=== PATIENT | male | born 1990 | race Caucasian/White ===

== ENCOUNTER 2017-03-27 18:42 | Emergency (ER) ==
[2017-03-27 18:42] VITALS: BMI 21.2
[2017-03-27 18:51] VITALS: BP 147/111; TEMP 99.7
--- NOTE | 2017-03-27 18:52 | ED.PDOC ---
General ED Provider: Dr. MARIBETH MARSH JR Chief Complaint: Hand Pain/Injury Stated Complaint: Pain rt hand wrist. Punched a wall with closed fist. Deformity to base of hand, ulnar side.[ End ]20 minutes 99.7 91 20 98% 147/111 05/08 wisdom teeth Time Seen by Physician: 18:50 Mode of Arrival: Walk-In Information Source: Patient Exam Limitations: No limitations Primary Care Provider: SANA MEYER Nursing and Triage Documentation Reviewed and Agree: No Review of Systems - Review Of Systems Constitutional: Reports: No symptoms Eyes: Reports: No symptoms Ears, Nose, Mouth, Throat: Reports: No symptoms Respiratory: Reports: No symptoms Cardiac: Reports: No symptoms GI: Reports: Nausea : Reports: No symptoms Musculoskeletal: Reports: Joint pain, Other (hand pain tenderness no focal lesions ) Skin: Reports: Lesions (abrasions 4th 5th mcp 2345 prox pips) Neurological: Reports: Anxiety Endocrine: Reports: No symptoms Hematologic/Lymphatic: Reports: No symptoms All Other Systems: Other Past Medical History - Past Medical History Previously Healthy: Yes Endocrine: Reports: None Cardiovascular: Reports: None Respiratory: Reports: None Hematological: Reports: None Gastrointestinal: Reports: None Genitourinary: Reports: None Neuro/Psych: Reports: None Musculoskeletal: Reports: None Cancer: Reports: None - Surgical History General Surgical History: Reports: Unknown - Family History Family History: Reports: Unknown - Social History Smoking Status: Current every day smoker, Heavy tobacco smoker Hx Substance Use: No Alcohol Screening: Occasionally - Immunizations Tetanus Shot up to Date: ([place]) Physical Exam - Physical Exam Appearance: Well-appearing, Thin Pain Distress: Moderate Musculoskeletal: Limited ROM, Edema Skin: Warm, Dry Neurological: Sensation intact, Alert, Oriented Psychiatric: Anxious Interpretation - Radiology Interpretation Radiology Interpretation By: ED Physician Radiology Results: Negative Exam Interpreted: Other (wrist) Radiology Interpretation By: Radiologist Radiology Results: Positive Exam Interpreted: Other (wrist hamate avulsion) Critical Care Note - Critical Care Note Total Time (mins): 0 Course - Course Orders, Labs, Meds: Orders Category Date Time Status Meperidine HCl/Pf [Demerol 50 mg/ml Syringe] MEDS 03/27/17 19:03 Discontinued 50 mg IM ONCE STA Promethazine HCl [Phenergan 25 mg/ml Vial] MEDS 03/27/17 19:04 Discontinued 25 mg IM ONCE STA HAND, RIGHT 3 VIEWS Stat RADS 03/27/17 18:51 Completed Medications Discontinued Medications Generic Name Dose Route Start Last Admin Trade Name Freq PRN Reason Stop Dose Admin Meperidine HCl 50 mg 03/27/17 19:03 03/27/17 19:21 Demerol 50 Mg/Ml Syringe IM 03/27/17 19:04 50 mg ONCE STA Administration Promethazine HCl 25 mg 03/27/17 19:04 03/27/17 19:22 Phenergan 25 Mg/Ml Vial IM 03/27/17 19:05 25 mg ONCE STA Administration Vital Signs: Temp Pulse Resp BP Pulse Ox 03/27/17 18:42 99.7 F H 91 H 20 147/111 H 98 Departure - Departure Time of Disposition: 19:37 Disposition: HOME SELF-CARE Discharge Problem: Fracture of hamate Instructions: Wrist Fracture in Adults (ED) Condition: Good Pt referred to PMD for follow-up: Yes Additional Instructions: follow up PMD in morning for orthopedic referral may follow up with [facility] for pain no refills return if pain not controlled if swelling increasing or if numbness Prescriptions: Hydrocodone Bit/Acetaminophen [[place] 5-325] 1 - 2 tab PO Q6HR PRN #12 tablet PRN Reason: pain Allergies/Adverse Reactions: Allergies No Known Allergies Allergy (Verified 07/22/16 05:47) Home Medications: Ambulatory Orders Hydrocodone Bit/Acetaminophen [[place] 5-325] 1 - 2 tab PO Q6HR PRN #12 tablet Ondansetron HCl [Zofran Tab] 4 mg PO Q8H PRN 03/27/17
[2017-03-27] MEDS ORDERED: DEMEROL 50 MG/ML SYRINGE IM STA (19:03)
[2017-03-27] MEDS ORDERED: PHENERGAN 25 MG/ML VIAL IM STA (19:04)
--- NOTE | 2017-03-27 19:26 | DI ---
Exam: Three-view right hand. Date: 03/27/2017. Comparison: None. HISTORY: Punched a wall. FINDINGS: The soft tissues are within normal limits. The mineralization is normal. Best seen on t he lateral view, is a 1.3 x 0.5 cm ossific fragment in the soft tissues dorsal to the distal carpal row. The metacarpals and phalanges are intact. Impression: Best seen on the lateral view was 1.3 x 0.5 cm ossific fragment over the distal carpal row and likely represents a vertical avulsion of the hamate.
== END 2017-03-27 19:49 | disposition home or self-care (01) ==
LOC: ED 18:42
DX: S62.141A Displaced fracture of body of hamate [unciform] bone, right wrist, initial encounter for closed fracture (principal); W22.09XA Striking against other stationary object, initial encounter; F17.210 Nicotine dependence, cigarettes, uncomplicated
CPT/HCPCS: 96372; 99282; 99283

== ENCOUNTER 2018-03-25 15:47 | Emergency (ER) | payer OTHER ==
[2018-03-25 15:51] VITALS: BP 133/66; TEMP 99.6; BMI 22.6
--- NOTE | 2018-03-25 16:25 | ED.PDOC ---
General ED Provider: Dr. EMI HURD Chief Complaint: Eye Problem Stated Complaint: pink eye and right upper lid edema Time Seen by Physician: 16:00 (negative trauma ) Mode of Arrival: Walk-In Information Source: Patient Exam Limitations: No limitations Nursing and Triage Documentation Reviewed and Agree: Yes Does patient meet sepsis criteria?: No If yes, has appropriate treatment been initiated?: No (see photo) System Inflammatory Response Syndrome: Not Applicable Sepsis Protocol: For patient's 13 years and over: Temp is 96.8 and below OR 101 and greater Pulse >90 BPM Resp >20/minute Acutely Altered Mental Status Are patient's symptoms suggestive of a new infection, such as: -Pneumonia -Skin, Soft Tissue -Endocarditis -UTI -Bone, Joint Infection -Implantable Device -Acute Abdominal Infection -Wound Infection -Meningitis -Blood Stream Catheter Infection -Unknown Review of Systems - Review Of Systems Constitutional: Reports: No symptoms Eyes: Reports: Inflammation (right side lid and conjunctiva ) Ears, Nose, Mouth, Throat: Reports: No symptoms Respiratory: Reports: No symptoms Cardiac: Reports: No symptoms GI: Reports: No symptoms : Reports: No symptoms Musculoskeletal: Reports: No symptoms Skin: Reports: No symptoms Neurological: Reports: No symptoms Endocrine: Reports: No symptoms Hematologic/Lymphatic: Reports: No symptoms All Other Systems: Reviewed and Negative Past Medical History - Past Medical History Previously Healthy: Yes Endocrine: Reports: None Cardiovascular: Reports: None Respiratory: Reports: None Hematological: Reports: None Gastrointestinal: Reports: None Genitourinary: Reports: None Neuro/Psych: Reports: None Musculoskeletal: Reports: None Cancer: Reports: None - Surgical History General Surgical History: Reports: Unknown - Family History Family History: Reports: Unknown - Social History Smoking Status: Current every day smoker, Heavy tobacco smoker Hx Substance Use: No Alcohol Screening: Occasionally Physical Exam - Physical Exam Appearance: Well-appearing, No pain distress, Well-nourished Eyes: Conjunctiva inflammed (right sided) ENT: Ears normal, Nose normal, Oropharynx normal Respiratory: Airway patent, Breath sounds clear, Breath sounds equal, Respirations nonlabored Cardiovascular: RRR, Pulses normal, No rub, No murmur GI/: Soft, Nontender, No masses, Bowel sounds normal, No Organomegaly Musculoskeletal: Normal strength, ROM intact, No edema, No calf tenderness Skin: Warm, Dry, Normal color Neurological: Sensation intact, Motor intact, Reflexes intact, Cranial nerves intact, Alert, Oriented Psychiatric: Affect appropriate, Mood appropriate Physician Notification - Case Discussed Physician Notified: DR tai mancia Time of Notification: 16:26 (SEND PT NOW ) Critical Care Note - Critical Care Note Total Time (mins): 0 Course - Course Vital Signs: Temp Pulse Resp BP Pulse Ox 03/25/18 15:47 99.6 F 58 L 18 133/66 96 Departure - Departure Time of Disposition: 16:25 Disposition: HOME SELF-CARE Discharge Problem: Conjunctivitis, right eye Qualifiers: Conjunctivitis type: unspecified Qualified Code(s): H10.9 - Unspecified conjunctivitis Instructions: Conjunctivitis (ED) Condition: Good Pt referred to PMD for follow-up: Yes IPMP verified?: No Additional Instructions: Please call your Family Physician as soon as possible to schedule a follow-up appointment.YOU MUST GO TO [facility] NOW Allergies/Adverse Reactions: Allergies No Known Allergies Allergy (Verified 03/25/18 15:51) Home Medications: Ambulatory Orders 1 [No Reported Medications] 03/25/18 Disposition Discussed With: Patient
== END 2018-03-25 16:34 | disposition home or self-care (01) ==
LOC: ED 15:47
DX: H10.9 Unspecified conjunctivitis (principal); F17.210 Nicotine dependence, cigarettes, uncomplicated
CPT/HCPCS: 99282

== ENCOUNTER 2018-06-02 17:21 | Emergency (ER) ==
[2018-06-02 17:23] VITALS: BP 136/81; TEMP 99.6; BMI 22.8
[2018-06-02] MEDS ORDERED: ZOFRAN ODT PO STA (18:16)
--- NOTE | 2018-06-02 18:31 | ED.PDOC ---
General ED Provider: Dr. SANA LO Chief Complaint: Headache Stated Complaint: AWAKENED THIS AM WITH SEVERE HEADACHE.WORSE MIGRAINE EVER. LOCATION ACROSS FOREHEAD IN SINUS REGION.NAUSEATED WITH EMESIS. NO LOC. 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 WAS BROUGHT HERE BY HIS ADMINISTRATIVE SECRETARY PARTNER/. CURRENTLY AMBULATING IN ER TO [facility] Time Seen by Physician: 18:30 Mode of Arrival: Walk-In Information Source: Patient Exam Limitations: No limitations Nursing and Triage Documentation Reviewed and Agree: Yes Does patient meet sepsis criteria?: No System Inflammatory Response Syndrome: Not Applicable Sepsis Protocol: For patient's 13 years and over: Temp is 96.8 and below OR 101 and greater Pulse >90 BPM Resp >20/minute Acutely Altered Mental Status Are patient's symptoms suggestive of a new infection, such as: -Pneumonia -Skin, Soft Tissue -Endocarditis -UTI -Bone, Joint Infection -Implantable Device -Acute Abdominal Infection -Wound Infection -Meningitis -Blood Stream Catheter Infection -Unknown Neurological Complaint Exam - Headache Complaint/Exam Symptoms Are: Still present Timing: Intermittent Episodes Lasting: Hours Worst Headache Ever: Yes Initial Severity: Severe Current Severity: Moderate Location: Right, Left, Frontal Character: Reports: Throbbing, Radiating, Pressure Aggravating: Reports: Exertion, Position change, Bright lights Alleviating: Reports: None Associated Signs and Symptoms: Reports: Dizziness, Nausea, Vomiting. Denies: Seizure, Sinus pressure, Fever, Neck pain, Neck stiffness, Decreased LOC, Visual changes Related History: Denies: Similar episode Related Surgical History: Reports: None SAH Risk Factors: Reports: None Meningitis Risk Factors: Reports: None SDH Risk Factors: Reports: None Temporal Arteritis Risk Factors: Reports: None Fundoscopic Exam: Present: Normal Findings Papilledema Present: No Temporal Artery Tenderness: Present: None Sinus Tenderness: Present: None TMJ Tenderness: Present: None Meningeal Signs Positive: No Pain on Passive Flexion-Positive Kernig's: No ROM Limited In: No Limitiations Focal Weakness: Present: None Focal Sensory Loss: Present: None Gait: Normal Nystagmus Present: No Gag Reflex Present: Yes [id number]: Normal Findings Differential Diagnoses: Migraine, Sinus Headache, Tension Headache Review of Systems - Review Of Systems Constitutional: Reports: No symptoms Eyes: Reports: Photophobia Ears, Nose, Mouth, Throat: Reports: No symptoms Respiratory: Reports: No symptoms Cardiac: Reports: No symptoms GI: Reports: Nausea : Reports: No symptoms Musculoskeletal: Reports: No symptoms, Muscle pain, Muscle stiffness Skin: Reports: No symptoms Neurological: Reports: Headache Endocrine: Reports: No symptoms Hematologic/Lymphatic: Reports: No symptoms All Other Systems: Reviewed and Negative Past Medical History - Past Medical History Endocrine: Reports: None Cardiovascular: Reports: None Respiratory: Reports: None Hematological: Reports: None Gastrointestinal: Reports: None Genitourinary: Reports: None Neuro/Psych: Reports: None Musculoskeletal: Reports: None Cancer: Reports: None - Surgical History General Surgical History: Reports: Unknown - Family History Family History: Reports: Unknown - Social History Smoking Status: Current every day smoker, Heavy tobacco smoker Hx Substance Use: No Alcohol Screening: Occasionally - Immunizations Tetanus Shot up to Date: No Physical Exam - Physical Exam Appearance: Well-appearing, No pain distress, Well-nourished Ill-appearing: Moderate Pain Distress: Moderate Eyes: BRANDO, EOMI, Conjunctiva clear ENT: Ears normal, Nose normal, Oropharynx normal Neck: Supple Respiratory: Airway patent, Breath sounds clear, Breath sounds equal, Respirations nonlabored Cardiovascular: RRR, Pulses normal, No rub, No murmur GI/: Soft, Nontender, No masses, Bowel sounds normal, No Organomegaly Musculoskeletal: Normal strength, ROM intact, No edema, No calf tenderness Skin: Warm, Dry, Normal color Neurological: Sensation intact, Motor intact, Reflexes intact, Cranial nerves intact, Alert, Oriented Psychiatric: Affect appropriate, Mood appropriate, Anxious Interpretation - Radiology Interpretation Radiology Interpretation By: Radiologist Exam Interpreted: CT Scan (Head no acute abnormality.Sinus -mucoal thickening in ethmoid sinus) Critical Care Note - Critical Care Note Total Time (mins): 0 Course - Course Hematology/Chemistry: 06/02/18 18:25 06/02/18 18:25 Orders, Labs, Meds: Lab Review 06/02/18 06/02/18 06/02/18 18:09 18:09 18:25 WBC 8.50 RBC 5.64 Hgb 16.2 Hct 46.5 MCV 82.4 MCH 28.7 MCHC 34.8 RDW Coeff of Kelsi 12.4 Plt Count 215 Immature Gran % (Auto) 0.2 Neut % (Auto) 67.9 Lymph % (Auto) 18.8 Johnston % (Auto) 12.0 H Eos % (Auto) 0.6 Baso % (Auto) 0.5 Immature Gran # (Auto) 0.0 Neut # (Auto) 5.8 Lymph # (Auto) 1.6 Johnston # (Auto) 1.0 Eos # (Auto) 0.1 Baso # (Auto) 0.0 Sodium Potassium Chloride Carbon Dioxide Anion Gap BUN Creatinine Estimated GFR (MDRD) BUN/Creatinine Ratio Glucose Calcium Total Bilirubin AST ALT Alkaline Phosphatase Total Protein Albumin Globulin Albumin/Globulin Ratio Urine Color Yellow Urine Clarity Clear Urine pH 7.5 Ur Specific [place] 1.015 Urine Protein Negative Urine Glucose (UA) Negative Urine Ketones Negative Urine Blood Negative Urine Nitrite Negative Urine Bilirubin Negative Urine Urobilinogen 0.2 Ur Leukocyte Esterase Negative Urine Opiates Screen Negative Ur Oxycodone Screen Negative Urine Methadone Screen Negative Ur Propoxyphene Screen Negative Ur Barbiturates Screen Negative U Tricyclic Antidepress Negative Ur Phencyclidine Scrn Negative Ur Amphetamine Screen Negative U Methamphetamines Scrn Negative U Benzodiazepines Scrn Negative Urine Cocaine Screen Negative U Cannabinoids Screen Positive 06/02/18 18:25 WBC RBC Hgb Hct MCV MCH MCHC RDW Coeff of Kelsi Plt Count Immature Gran % (Auto) Neut % (Auto) Lymph % (Auto) [place] % (Auto) Eos % (Auto) Baso % (Auto) Immature Gran # (Auto) Neut # (Auto) Lymph # (Auto) Johnston # (Auto) Eos # (Auto) Baso # (Auto) Sodium 137.6 Potassium 3.99 Chloride 101.5 Carbon Dioxide 29.7 Anion Gap 10.39 BUN 9.9 Creatinine 1.06 Estimated GFR (MDRD) 84.00 BUN/Creatinine Ratio 9.33 Glucose 90.4 Calcium 9.26 Total Bilirubin 0.60 AST 31.4 ALT 20.5 Alkaline Phosphatase 55.2 Total Protein 8.14 Albumin 4.77 Globulin 3.37 Albumin/Globulin Ratio 1.41 Urine Color Urine Clarity Urine pH Ur Specific [place] Urine Protein Urine Glucose (UA) Urine Ketones Urine Blood Urine Nitrite Urine Bilirubin Urine Urobilinogen Ur Leukocyte Esterase Urine Opiates Screen Ur Oxycodone Screen Urine Methadone Screen Ur Propoxyphene Screen Ur Barbiturates Screen U Tricyclic Antidepress Ur Phencyclidine Scrn Ur Amphetamine Screen U Methamphetamines Scrn U Benzodiazepines Scrn Urine Cocaine Screen U Cannabinoids Screen Orders Category Date Time Status CBC W/ AUTO DIFF Stat LAB 06/02/18 18:25 Completed CMP [COMPREHENSIVE METABOLIC PANEL] Stat LAB 06/02/18 18:25 Completed UA [URINALYSIS C & S IF INDICATED] Stat LAB 06/02/18 18:09 Completed URINE DRUG SCREEN (RAPID FOR ED) [DRUG SCREEN, URINE, LAB 06/02/18 18:09 Completed RAPID] Stat Dexamethasone 4 mg/ml Inj [Decadron 4 mg/ml Sdv] MEDS 06/02/18 19:20 Discontinued 4 mg IM ONCE STA Ketorolac Tromethamine [Toradol] MEDS 06/02/18 19:04 Discontinued 30 mg IM ONCE STA Ondansetron [Zofran Odt] MEDS 06/02/18 19:11 Discontinued 4 mg .ROUTE .STK-MED ONE Ondansetron [Zofran Odt] MEDS 06/02/18 18:16 Discontinued 4 mg PO ONCE STA CT HEAD W/O CONTRAST Stat RADS 06/02/18 18:[address] SINUSES W/O CONTRAST Stat RADS 06/02/18 18:13 Completed Medications Discontinued Medications Generic Name Dose Route Start Last Admin Trade Name Freq PRN Reason Stop Dose Admin Dexamethasone Sodium Phosphate 4 mg 06/02/18 19:20 Decadron 4 Mg/Ml Sdv IM 06/02/18 19:21 ONCE STA Ketorolac Tromethamine 30 mg 06/02/18 19:04 06/02/18 19:19 Toradol IM 06/02/18 19:05 30 mg ONCE STA Administration Ondansetron HCl 4 mg 06/02/18 18:16 06/02/18 19:20 Zofran Odt PO 06/02/18 18:17 4 mg ONCE STA Administration Vital Signs: Temp Pulse Resp BP Pulse Ox 06/02/18 17:22 99.6 F 66 18 136/81 98 Departure - Departure Time of Disposition: 19:35 Disposition: HOME SELF-CARE Discharge Problem: Tension headache Instructions: Tension Headache (ED) Condition: Good Pt referred to PMD for follow-up: Yes IPMP verified?: No Additional Instructions: Take Ibuprofen 200 mg 3 tabs every 6 hrs as needed for headache Apply warm moist heat to back of neck and forehead Allergies/Adverse Reactions: Allergies No Known Allergies Allergy (Verified 06/02/18 17:23) Home Medications: Ambulatory Orders Ondansetron [Zofran Odt] 4 mg PO Q8H PRN #10 tab.doreendis 06/02/18 Disposition Discussed With: Patient, Family
--- NOTE | 2018-06-02 18:57 | CT ---
Exam: CT of the brain without intravenous contrast. Comparison: None available. Reason for exam: Headache. FINDINGS: No acute intracranial hemorrhage, mass effect, ventricular dilatation, or territorial infa rction. There is mild mucosal thickening in the ethmoid sinuses. No depressed calvarial fracture is seen. The quadrigeminal and ambient cisterns are patent. There is no extraaxial fluid collection. Impression: 1. No acute intracranial findings. 2. Mild mucosal thickening in the partially imaged ethmoid sinus.
--- NOTE | 2018-06-02 18:58 | CT ---
Exam: CT sinuses without intravenous contrast. Comparison: None available. Reason for EXAM: Sinus pressure FINDINGS: No displaced facial fractures are seen. There is mild mucosal thickening in the ethmoid s inuses. No discrete air fluid levels are seen in the frontal, maxillary and sphenoid sinuses. Hailey l appearing pneumatization of the mastoid air cells. No displaced oral fracture is seen. Impression: Mild mucosal thickening in the ethmoid sinuses.
[2018-06-02] MEDS ORDERED: TORADOL IM STA (19:04)
[2018-06-02] MEDS ORDERED: ZOFRAN ODT ONE (19:11)
[2018-06-02] MEDS ORDERED: DECADRON 4 MG/ML SDV IM STA (19:20)
== END 2018-06-02 19:51 | disposition home or self-care (01) ==
LOC: ED 17:21
DX: G44.209 Tension-type headache, unspecified, not intractable (principal); F17.210 Nicotine dependence, cigarettes, uncomplicated
CPT/HCPCS: 36415; 80053; 80306; 81001; 85025; 96372; 99283